=== PATIENT | male | born 1960 | race American Indian/Alaskan Native ===

== ENCOUNTER 2019-06-19 00:59 | Emergency (ER) | payer OTHER ==
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
[2019-06-19 01:39] VITALS: BP 150/90
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
== END 2019-06-19 03:23 | disposition home or self-care (01) ==
LOC: ED 00:59
DX: S39.012A Strain of muscle, fascia and tendon of lower back, initial encounter (principal); S43.401A Unspecified sprain of right shoulder joint, initial encounter; V49.49XA Driver injured in collision with other motor vehicles in traffic accident, initial encounter; Y93.89 Activity, other specified; Y92.89 Other specified places as the place of occurrence of the external cause; Y99.8 Other external cause status
CPT/HCPCS: 72100

== ENCOUNTER 2019-08-12 21:43 | Emergency (ER) | payer OTHER ==
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
[2019-08-12] MEDS ORDERED: cloNIDine 0.2 MG TAB PO ONE (22:04)
[2019-08-12] MEDS ORDERED: cloNIDine 0.2 MG TAB ONE (22:06)
[2019-08-12 22:48] LABS: Basophils # (Auto) 0.1 K/mm3 (0.0-0.1); Basophils % (Auto) 1.1 % (0.0-1.8); Eosinophils # (Auto) 0.1 K/mm3 (0.0-0.4); Eosinophils % (Auto) 2.2 % (0.0-4.3); Hematocrit 40.6 % (35.5-45.6); Hemoglobin 13.8 gm/dl (11.8-15.2); Lymphocytes # (Auto) 1.5 K/mm3 (1.2-5.4); Lymphocytes % (Auto) 30.4 % (13.4-35.0); Mean Corpuscular HGB Conc 34 % (32-34); Mean Corpuscular Volume 86 fl (84-94); Monocytes # (Auto) 0.6 K/mm3 (0.0-0.8); Monocytes % (Auto) 13.3 % (0.0-7.3); Platelet Count 157 K/mm3 (140-440); Red Blood Count 4.71 M/mm3 (3.65-5.03); Red Cell Distribution Width 14.6 % (13.2-15.2)
[2019-08-12 23:08] LABS: BUN/Creatinine Ratio 8; Blood Urea Nitrogen 6 mg/dL (9-20); Hemolysis Index 8
--- NOTE | 2019-08-12 23:12 | XRay Report ---
CHEST 2 VIEWS, 08/12/2019 10:41 PM INDICATION: Weakness COMPARISON: None FINDINGS: Support devices: None Heart: The cardiac silhouette is normal in size Lungs/pleura: The lungs are clear of focal airspace disease or significant pleural effusion Additional findings: Evaluation of bony structures demonstrates no evidence of acute bony abnormality . IMPRESSION: 1. No evidence of acute cardiopulmonary process. Signer Name: Kanika Moreno MD Signed: 08/12/2019 11:07 PM Workstation Name: [id number]
--- NOTE | 2019-08-12 23:45 | Emergency Department Report ---
ED Headache HPI - General Chief Complaint: High BP Stated Complaint: POSS HIGH BP FLU SYMPTOMS Time Seen by Provider: 08/12/19 21:56 Source: patient Exam Limitations: no limitations - History of Present Illness Initial Comments: 59-year-old male with a past medical history of hypertension presents to Hospital complaining of elevated blood pressure, headache, and URI/cold symptoms the last 2 days. Patient has had a dry cough, runny nose, generalized body aches for the past 2 days. Denies fever, nausea, vomiting, diarrhea, chest pain, abdominal pain, or shortness of breath. Patient is compliant with his daily blood pressure medication ? lisinopril 20 mg. Patient started taking [id number] cough and cold medicine including [place] cold medicine. Patient developed a global headache earlier today and checked his blood pressure home and found it to be elevated. Patient presented here with a BP 191/123. Patient see clonidine 0.2 mg prior to my evaluation with reduction of his blood pressure and headache. Patient denies blurry vision, focal weakness, or focal numbness. Pt's with similar uri sx, no international travel, pt did not receive flu shot. Allergies/Adverse Reactions: Allergies Penicillins Adverse Reaction (Verified 06/19/19 01:40) Rash Home Medications: Ambulatory Orders Naproxen [Naprosyn] 500 mg PO BID #20 tablet 06/19/19 methOCARBAMOL [Robaxin TAB] 500 mg PO Q8HR PRN #20 tablet 06/19/19 Benzonatate [Tessalon Perles] 100 mg PO Q8HR PRN #20 capsule 08/12/19 Ibuprofen [Motrin] 800 mg PO Q8HR PRN #30 tablet 08/12/19 Sodium Chloride [Saline Nasal Marble] 1 - 2 sprays NS PRN PRN #1 bottle 08/12/19 lisinopriL [Zestril TAB] 40 mg PO QDAY #30 tablet 08/12/19 ED Review of Systems ROS: Stated complaint: POSS HIGH BP FLU SYMPTOMS Other details as noted in HPI Comment: All other systems reviewed and negative ED Past Medical Hx - Past Medical History Previous Medical History?: Yes Hx Hypertension: Yes - Surgical History Past Surgical History?: No - Social History Smoking Status: Current Every Day Smoker Substance Use Type: Alcohol - Medications Home Medications: Home Medications Medication Instructions Recorded Confirmed Last Taken Type Naproxen [Naprosyn] 500 mg PO BID #20 tablet 06/19/19 Unknown Rx methOCARBAMOL [Robaxin TAB] 500 mg PO Q8HR PRN #20 tablet 06/19/19 Unknown Rx Benzonatate [Tessalon Perles] 100 mg PO Q8HR PRN #20 capsule 08/12/19 Unknown Rx Ibuprofen [Motrin] 800 mg PO Q8HR PRN #30 tablet 08/12/19 Unknown Rx Sodium Chloride [Saline Nasal 1 - 2 sprays NS PRN PRN #1 bottle 08/12/19 Unknown Rx Marble] lisinopriL [Zestril TAB] 40 mg PO QDAY #30 tablet 08/12/19 Unknown Rx ED Physical Exam - General Limitations: No Limitations - Other Other exam information: General: No limitations, patient is alert in no acute distress Head exam: Atraumatic, normocephalic Eyes exam: Normal appearance, pupils equal reactive to light, extraocular movements intact ENT: Moist mucous membrane, no sinus tenderness Neck exam: Normal inspection, full range of motion, no meningismus nontender Respiratory exam: Clear to auscultation bilateral, no wheezes, rales, crackles Cardiovascular: Normal rate and rhythm, normal heart sounds Abdomen: Soft, nondistended, and nontender, with normal bowel sounds, no rebound, or guarding Extremity: Full range of motion normal inspection no deformity Back: Normal Inspection, full range of motion, no tenderness Neurologic: Alert, oriented x3, cranial nerves intact, no motor or sensory deficit Psychiatric: normal affect, normal mood Skin: Warm, dry, intact ED Course Vital Signs 08/12/19 08/12/19 08/12/19 21:49 22:06 23:16 Temperature 98.2 F 99.0 F Pulse Rate 90 90 92 H Respiratory 18 18 Rate Blood Pressure 191/123 191/123 Blood Pressure 127/86 [Left] O2 Sat by Pulse 98 99 Oximetry ED Medical Decision Making - Lab Data Result diagrams: 08/12/19 22:31 08/12/19 22:31 Lab Results 08/12/19 08/12/19 08/12/19 Range/Units 22:31 22:31 22:31 WBC 4.8 (4.5-11.0) K/mm3 RBC 4.71 (3.65-5.03) M/mm3 Hgb 13.8 (11.8-15.2) gm/dl Hct 40.6 (35.5-45.6) % MCV 86 (84-94) fl MCH 29 (28-32) pg MCHC 34 (32-34) % RDW 14.6 (13.2-15.2) % Plt Count 157 (140-440) K/mm3 Lymph % (Auto) 30.4 (13.4-35.0) % Pershing % (Auto) 13.3 H (0.0-7.3) % Eos % (Auto) 2.2 (0.0-4.3) % Baso % (Auto) 1.1 (0.0-1.8) % Lymph # 1.5 (1.2-5.4) K/mm3 Pershing # 0.6 (0.0-0.8) K/mm3 Eos # 0.1 (0.0-0.4) K/mm3 Baso # 0.1 (0.0-0.1) K/mm3 Seg Neutrophils % 53.0 (40.0-70.0) % Seg Neutrophils # 2.5 (1.8-7.7) K/mm3 Sodium 138 (137-145) mmol/L Potassium 3.5 L (3.6-5.0) mmol/L Chloride 99.6 (98-107) mmol/L Carbon Dioxide 26 (22-30) mmol/L Anion Gap 16 mmol/L BUN 6 L (9-20) mg/dL Creatinine 0.8 (0.8-1.5) mg/dL Estimated GFR > 60 ml/min BUN/Creatinine Ratio 8 % Glucose 173 H (75-100) mg/dL Calcium 9.0 (8.4-10.2) mg/dL Troponin T < 0.010 (0.00-0.029) ng/mL - EKG Data -: EKG Interpreted by Ca EKG shows normal: sinus rhythm, ST-T waves (no stemi) - Radiology Data Radiology results: report reviewed CHEST 2 VIEWS, 08/12/2019 10:41 PM INDICATION: Weakness COMPARISON: None FINDINGS: Support devices: None Heart: The cardiac silhouette is normal in size Lungs/pleura: The lungs are clear of focal airspace disease or significant pleural effusion Additional findings: Evaluation of bony structures demonstrates no evidence of acute bony abnormality. IMPRESSION: 1. No evidence of acute cardiopulmonary process. - Medical Decision Making child improved with bp reduction no focal neuro complaints bp improved after clonidine pt consulted on not taking otc cough/cold medicine not approved for htn pts incr lisinopril to 40mg qd and f/u with pmd sx tx for virus/uri sebas be provided. po kcl for mild hypokalemia - Differential Diagnosis flu, virus, htn emergency, Critical Care Time: No Critical care attestation.: If time is entered above; I have spent that time in minutes in the direct care of this critically ill patient, excluding procedure time. ED Disposition Clinical Impression: Uncontrolled hypertension, Viral illness Disposition: DC- TO HOME OR SELFCARE Is pt being admited?: No Does the pt Need Aspirin: No Condition: Stable Instructions: Hypertension (ED), Viral Syndrome (ED) Additional Instructions: Take the medication as prescribed. Take only Corcidin HBP cough and cold medicine or other medications approved in patients with high blood pressure. Increase your lisinopril from 20mg to 40mg daily. Follow up with you doctor or with the doctor provided. Return if symptoms worsen as indicated by your discharge instructions. Prescriptions: Ibuprofen [Motrin] 800 mg PO Q8HR PRN #30 tablet PRN Reason: Pain , Severe (7-10) Sodium Chloride [Saline Nasal Marble] 1 - 2 sprays NS PRN PRN #1 bottle PRN Reason: Nasal Congestion Benzonatate [Tessalon Perles] 100 mg PO Q8HR PRN #20 capsule PRN Reason: Cough lisinopriL [Zestril TAB] 40 mg PO QDAY #30 tablet Referrals: PRIMARY CARE, [Primary Care Provider] - 2-3 Days Time of Disposition: 23:54
[2019-08-12] MEDS ORDERED: POTASSIUM CHLORIDE ER 20 MEQ TAB PO ONE (23:50)
[2019-08-13 00:11] VITALS: BP 144/94
== END 2019-08-13 00:29 | disposition home or self-care (01) ==
LOC: ED 21:43
DX: I10 Essential (primary) hypertension (principal); B34.9 Viral infection, unspecified; F17.200 Nicotine dependence, unspecified, uncomplicated; F10.10 Alcohol abuse, uncomplicated; Z79.899 Other long term (current) drug therapy; Z88.0 Allergy status to penicillin
CPT/HCPCS: 36415; 71046; 80048; 84484; 85025; 93005; 93010